=== PATIENT | female | born 1990 | race Caucasian/White ===

== ENCOUNTER 2016-12-07 04:54 | Emergency (ER) | payer BC, MEDICAID ==
[2016-12-07 05:01] VITALS: TEMP 98.2
--- NOTE | 2016-12-07 05:36 | CPEKG ---
Heart Rate: 84 RR Interval: 714 P-R Interval: 164 QRSD Interval: 90 QT Interval: 384 QTC Interval: 454 P [place]: 73 QRS [place]: 76 T Wave [place]: 26 EKG Severity - NORMAL ECG - EKG Impression: SINUS RHYTHM Electronically Signed By: Patsy Ferreira 07-Dec-2016 06:39:24
--- NOTE | 2016-12-07 05:51 | EDPHY ---
H & P Stated Complaint: SOB COUGH CHEST PAIN, NOT TAKING MENTAL HEALTH MEDS Time Seen by Provider: 12/07/16 05:05 HPI/ROS: HPI The patient presents with cough, shortness of breath, chest pain for the last 3 weeks. Her symptoms have been intermittent though she believes the getting progressively worse. Her cough is productive in nature and over the last 2 days it has been somewhat bloody. This is been associated with left-sided chest pain which feels like it is in her chest wall and is sharp in nature. She sometimes feels like she can't catch her breath, however this comes and goes. A few days ago she had a fainting episode while at home. This occurred while standing and was witnessed by her father. She also says for the last 1 week she has been off of her psychiatric medications. Her doctor changed her from Cymbalta to Wellbutrin and she felt it was not helping so she stopped taking all of her medications. She denies any suicidal or homicidal ideations. REVIEW OF SYSTEMS Constitutional: No fever, no chills. Eyes: No discharge. ENT: No sore throat. Cardiovascular: Positive for chest pain, no palpitations. Respiratory: See HPI Gastrointestinal: No abdominal pain, no vomiting. Genitourinary: No hematuria. Musculoskeletal: No back pain. Skin: No rashes. Neurological: No headache. PMHx: Depression on multiple medications Soc Hx: 1/2 pack per day smoker PHYSICAL General Appearance: Alert, no distress Eyes: Pupils equal and round no pallor or injection ENT, Mouth: Mucous membranes moist Respiratory: There are no retractions, lungs are clear to auscultation Cardiovascular: Regular rate and rhythm Gastrointestinal: Abdomen is soft and non-tender, no masses, bowel sounds normal Neurological: A&O, moves all extremities Skin: Warm and dry, no rashes Musculoskeletal: Neck is supple non tender Extremities: symmetrical, full range of motion Psychiatric: Patient is oriented X 3, there is no agitation Source: Patient Exam Limitations: No limitations - Personal History LMP (Females 10-55): 1-7 Days Ago Current Tetanus/Diphtheria Vaccine: Yes Current Tetanus Diphtheria and Acellular Pertussis (TDAP): Yes - Medical/Surgical History Hx Asthma: No Hx Chronic Respiratory Disease: No Hx Diabetes: No Hx Cardiac Disease: No Hx Renal Disease: No Hx Cirrhosis: No Hx Alcoholism: No Hx HIV/AIDS: No Hx Splenectomy or Spleen Trauma: No Other PMH: PANIC , DEPRESSION, PTSD, - Social History Smoking Status: Heavy smoker Constitutional: Initial Vital Signs Temperature (C) 36.8 C 12/07/16 04:58 Heart Rate 102 H 12/07/16 04:58 Respiratory Rate 18 12/07/16 04:58 Blood Pressure 122/92 H 12/07/16 04:58 O2 Sat (%) 100 12/07/16 04:58 O2 Delivery Mode Room Air Allergies/Adverse Reactions: No Known Allergies Allergy (Verified 12/07/16 05:01) Home Medications: Medication Instructions Recorded NK [No Known Home Meds] 12/07/16 Medical Decision Making - Diagnostics EKG Interpretation: EKG: Complete interpretation has been separately recorded in the [facility] archive. Summary impression: Normal sinus rhythm Imaging Results: Chest x-ray two view shows no cardiomegaly, no infiltrate, interpreted by me, radiology interpretation is pending. Differential Diagnosis: This is a 26-year-old female with past psychiatric history, off of her medications for the last 1 week, but now presenting with 3 weeks of cough, chest wall pain some shortness of breath intermittently. On exam, she is well- appearing, she has normal vital signs. She has chest wall tenderness of her left chest without any rash. Differential diagnosis includes pneumonia, bronchitis, costochondritis, less likely pulmonary embolism given no hypoxia, risk factors. EKG and chest x-ray were unremarkable. Patient admitted to her nurse that she did use amphetamines intravenously within the last few days. This could explain some of her symptoms as well. Labs were checked and were unremarkable. She will be discharged from the emergency room. I have advised her to stop using any amphetamines as I feel this could be contributing to her symptoms. I did advise her to also stop smoking. I feel she is likely suffering from costochondritis due to a viral URI type illness. - Data Points Laboratory Results: Laboratory Results 12/07/16 06:20 12/07/16 06:20 12/07/16 12/07/16 12/07/16 06:20 06:20 06:20 WBC RBC Hgb Hct MCV MCH MCHC RDW Plt Count MPV Neut % (Auto) Lymph % (Auto) [place] % (Auto) Eos % (Auto) Baso % (Auto) Nucleat RBC Rel Count Absolute Neuts (auto) Absolute Lymphs (auto) Absolute Monos (auto) Absolute Eos (auto) Absolute Basos (auto) Absolute Nucleated RBC Immature Gran % Immature Gran # D-Dimer 0.44 ug/mLFEU ug/mLFEU (0.00-0.50) Sodium 141 mEq/L mEq/L (134-144) Potassium 3.6 mEq/L mEq/L (3.5-5.2) Chloride 106 mEq/L mEq/L (97-110) Carbon Dioxide 23 mEq/l mEq/l (22-31) Anion Gap 12 mEq/L mEq/L (8-16) BUN 12 mg/dL mg/dL (7-23) Creatinine 0.8 mg/dL mg/dL (0.6-1.0) Estimated GFR > 60 Glucose 88 mg/dL mg/dL (70-100) Calcium 9.8 mg/dL mg/dL (8.5-10.4) Beta HCG, Qual NEGATIVE 12/07/16 06:20 WBC 8.19 10^3/uL 10^3/uL (3.80-9.50) RBC 4.62 10^6/uL 10^6/uL (4.18-5.33) Hgb 13.3 g/dL g/dL (12.6-16.3) Hct 40.0 % % (38.0-47.0) MCV 86.6 fL fL (81.5-99.8) MCH 28.8 pg pg (27.9-34.1) MCHC 33.3 g/dL g/dL (32.4-36.7) RDW 13.7 % % (11.5-15.2) Plt Count 244 10^3/uL 10^3/uL (150-400) MPV 11.8 fL H fL (8.7-11.7) Neut % (Auto) 60.3 % % (39.3-74.2) Lymph % (Auto) 30.0 % % (15.0-45.0) [place] % (Auto) 8.3 % % (4.5-13.0) Eos % (Auto) 0.5 % L % (0.6-7.6) Baso % (Auto) 0.7 % % (0.3-1.7) Nucleat RBC Rel Count 0.0 % % (0.0-0.2) Absolute Neuts (auto) 4.93 10^3/uL 10^3/uL (1.70-6.50) Absolute Lymphs (auto) 2.46 10^3/uL 10^3/uL (1.00-3.00) Absolute Monos (auto) 0.68 10^3/uL 10^3/uL (0.30-0.80) Absolute Eos (auto) 0.04 10^3/uL 10^3/uL (0.03-0.40) Absolute Basos (auto) 0.06 10^3/uL 10^3/uL (0.02-0.10) Absolute Nucleated RBC 0.00 10^3/uL 10^3/uL (0-0.01) Immature Gran % 0.2 % % (0.0-1.1) Immature Gran # 0.02 10^3/uL 10^3/uL (0.00-0.10) D-Dimer Sodium Potassium Chloride Carbon Dioxide Anion Gap BUN Creatinine Estimated GFR Glucose Calcium Beta HCG, Qual Departure - Departure Disposition: Home, Routine, Self-Care Clinical Impression: Cough Chest pain Qualifiers: Chest pain type: other chest pain Qualified Code(s): R07.89 - Other chest pain Condition: Good Instructions: Chest Pain (ED) Additional Instructions: Please stop using any drugs as this could be contributing to her chest pain. You should take ibuprofen or Tylenol as needed. Please return to the emergency room if your worse in any way. Referrals: [facility] [Outside] - As per Instructions [facility] [Outside] - As per Instructions
[2016-12-07 06:28] VITALS: PULSE 76
[2016-12-07 06:29] LABS: % IMMATURE GRANULYOCYTES 0.2 % (0.0-1.1); ABSOLUTE IMMATURE GRANULOCYTES 0.02 10^3/uL (0.00-0.10); ADD DIFF? NO; ADD MORPH? NO; ADD SCAN? NO; ATYPICAL LYMPHOCYTE FLAG 40 (0-99); FRAGMENT RBC FLAG 0 (0-99); HEMOGLOBIN 13.3 g/dL (12.6-16.3); LEFT SHIFT FLG 0 (0-99); LIPEMIA HEMOLYSIS FLAG 80 (0-99); MEAN CELL HEMOGLOBIN 28.8 pg (27.9-34.1); MEAN CELL HEMOGLOBIN CONCENTR. 33.3 g/dL (32.4-36.7); MEAN CELL VOLUME 86.6 fL (81.5-99.8); MEAN PLATELET VOLUME 11.8 fL (8.7-11.7); PLATELET CLUMPS FLAG 0 (0-99); PLATELET COUNT 244 10^3/uL (150-400); RED BLOOD CELL COUNT 4.62 10^6/uL (4.18-5.33); RED CELL DISTRIBUTION WIDTH 13.7 % (11.5-15.2)
[2016-12-07 06:52] LABS: ANION GAP 12 mEq/L (8-16); CALCIUM 9.8 mg/dL (8.5-10.4); CARBON DIOXIDE 23 mEq/l (22-31); CHLORIDE 106 mEq/L (97-110); CREATININE 0.8 mg/dL (0.6-1.0); GLOMERULAR FILTRATION RATE > 60; GLUCOSE 88 mg/dL (70-100); POTASSIUM 3.6 mEq/L (3.5-5.2); SODIUM 141 mEq/L (134-144)
[2016-12-07 07:13] VITALS: BP 119/81; RESP 18; O2SAT 98
== END 2016-12-07 07:16 | disposition home or self-care (01) ==
DX: R05 Cough (principal); R07.89 Other chest pain; F17.200 Nicotine dependence, unspecified, uncomplicated

== ENCOUNTER 2017-02-09 07:37 | Emergency (ER) | payer MEDICAID ==
[2017-02-09] MEDS ORDERED: LORazepam 2 MG/ML INJ IVP ONE (07:51)
[2017-02-09 08:33] LABS: % IMMATURE GRANULYOCYTES 0.6 % (0.0-1.1); ABSOLUTE IMMATURE GRANULOCYTES 0.06 10^3/uL (0.00-0.10); ADD DIFF? NO; ADD MORPH? NO; ADD SCAN? NO; ATYPICAL LYMPHOCYTE FLAG 40 (0-99); FRAGMENT RBC FLAG 0 (0-99); HEMATOCRIT 41.4 % (38.0-47.0); HEMOGLOBIN 14.3 g/dL (12.6-16.3); LEFT SHIFT FLG 0 (0-99); LIPEMIA HEMOLYSIS FLAG 90 (0-99); MEAN CELL HEMOGLOBIN 28.8 pg (27.9-34.1); MEAN CELL HEMOGLOBIN CONCENTR. 34.5 g/dL (32.4-36.7); MEAN CELL VOLUME 83.3 fL (81.5-99.8); MEAN PLATELET VOLUME 12.5 fL (8.7-11.7); PLATELET CLUMPS FLAG 0 (0-99); PLATELET COUNT 275 10^3/uL (150-400); RED BLOOD CELL COUNT 4.97 10^6/uL (4.18-5.33); RED CELL DISTRIBUTION WIDTH 13.2 % (11.5-15.2)
[2017-02-09 08:39] LABS: ANION GAP 18 mEq/L (8-16); CALCIUM 10.5 mg/dL (8.5-10.4); CARBON DIOXIDE 19 mEq/l (22-31); CHLORIDE 108 mEq/L (97-110); GLOMERULAR FILTRATION RATE > 60; GLUCOSE 79 mg/dL (70-100); POTASSIUM 3.5 mEq/L (3.5-5.2); SODIUM 145 mEq/L (134-144)
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
[2017-02-09 09:50] LABS: ETHANOL SERUM < 10 mg/dL (0-10)
[2017-02-09] MEDS ORDERED: OLANZapine 5 MG TAB ONE (13:47)
[2017-02-09] MEDS ORDERED: OLANZapine 5 MG TAB PO ONE (13:54)
[2017-02-09 22:58] VITALS: RESP 16
[2017-02-10] MEDS ORDERED: IBUPROFEN 200 MG TAB PO ONE (08:16)
[2017-02-10 18:38] VITALS: BP 100/60; PULSE 88; TEMP 97.5; O2SAT 96
== END 2017-02-10 19:05 ==
LOC: EDUNIT#
DX: F19.10 Other psychoactive substance abuse, uncomplicated (principal); F17.200 Nicotine dependence, unspecified, uncomplicated
CPT/HCPCS: 80305; 96374; G0480; J2060

== ENCOUNTER 2017-04-21 21:29 | Emergency (ER) | payer MEDICAID ==
--- NOTE | 2017-04-21 21:51 | EDPHY ---
H & P Stated Complaint: Suicide attempt 04/20 HPI/ROS: HPI CHIEF COMPLAINT: Suicidal ideation, medication overdose times 36 hours ago HISTORY OF PRESENT ILLNESS: This patient 26-year-old female she states to me that she has a very long history mental illness. She would not describe her mental illness but does state that she suffers from depression and previous suicidal ideation with suicide attempts. Patient tells me that 36 hours ago around 10:00 a.m. yesterday she ingested cold medicine as well as ibuprofen. She states 16 tabs of cold medicine she is unsure exactly what the medicine is. Additionally she tells me she ingested 15 tabs of ibuprofen. Denies Tylenol ingestion. She does not know the cold medicine was. She states she decided come to the emergency room as she still feels swimmy headed and her vision is blurry. She states she vomited yesterday multiple times. She denies any pain anywhere. She does tell me she suicidal. She came here by bus. Walked to the front door. Past Medical History: Longstanding history of mental illness including depression previous suicidal attempts. Past Surgical History: Denies recent surgery Social History: Lives in [facility] with her parents, unemployed. Smokes tobacco. Denies illicit drugs or alcohol. Family History: Noncontributory ROS REVIEW OF SYSTEMS: A comprehensive 10 point review of systems is otherwise negative aside from elements mentioned in the history of present illness. Exam Constitutional otherwise nontoxic, triage nursing summary reviewed, vital signs reviewed, awake/alert. Eyes normal conjunctivae and sclera, EOMI, 5 mm equal dilated pupils minimally reactive to light, HENT normal inspection, atraumatic, moist mucus membranes, no epistaxis, neck supple/ no meningismus, no raccoon eyes. Respiratory clear to auscultation bilaterally, normal breath sounds, no respiratory distress, no wheezing. Cardiovascular rate normal, regular rhythm, no murmur, no edema, distal pulses normal. Gastrointestinal soft, non-tender, no rebound, no guarding, normal bowel sounds, no distension, no pulsatile mass. Genitourinary no CVA tenderness. Musculoskeletal no midline vertebral tenderness, full range of motion, no calf swelling, no tenderness of extremities, no meningismus, good pulses, neurovascularly intact. Skin pink, warm, & dry, no rash, skin atraumatic. Neurologic awake, alert and oriented x 3, AAOx3, moves all 4 extremities equally, motor intact, sensory intact, CN II-XII intact, normal cerebellar, normal vision, normal speech. Psychiatric normal mood/affect. Heme/Lymph/Immune no lymphadenopathy. Differential Diagnosis: Includes but is not limited to in a particular order drug overdose, Tylenol toxicity, dehydration, electrolyte disturbance, renal failure, suicidal ideation Medical Decision Making: Plan for this patient IV establishment IV fluid bolus 1 L normal saline, check LFTs, check acetaminophen level checked salicylate level. Symptomatic treatment. Patient be placed on M1 hold. Re-evaluation: 0124: Patient seen evaluated by mental health. They would like to place this patient in a CSU. The like to keep her on M1 hold. 0452: Patient has been accepted by Rene ESPARZA , at [place]. EMTALA Filled out. Appropriate transfer to be set up. No acute events overnight. Medically clear. Appropriate for transfer. Suicidal ideation with depression. Source: Patient - Personal History LMP (Females 10-55): 1-7 Days Ago Current Tetanus/Diphtheria Vaccine: Unsure Current Tetanus Diphtheria and Acellular Pertussis (TDAP): Unsure - Medical/Surgical History Hx Asthma: No Hx Chronic Respiratory Disease: No Hx Diabetes: No Hx Cardiac Disease: No Hx Renal Disease: No Hx Cirrhosis: No Hx Alcoholism: No Hx HIV/AIDS: No Hx Splenectomy or Spleen Trauma: No Other PMH: PANIC , DEPRESSION, PTSD, - Social History Smoking Status: Heavy smoker Constitutional: Initial Vital Signs Temperature (C) 36.8 C 04/21/17 21:35 Heart Rate 102 H 04/21/17 21:35 Respiratory Rate 16 04/21/17 21:35 Blood Pressure 122/111 H 04/21/17 21:35 O2 Sat (%) 98 04/21/17 21:35 O2 Delivery Mode Room Air Allergies/Adverse Reactions: No Known Allergies Allergy (Verified 02/09/17 08:04) Home Medications: Medication Instructions Recorded MIRTAZAPINE 04/21/17 Seroquel 04/21/17 Topamax 04/21/17 Medical Decision Making - Data Points Laboratory Results: Laboratory Results 04/21/17 22:19 04/21/17 22:19 04/21/17 04/21/17 04/21/17 22:19 22:19 21:50 WBC 8.38 10^3/uL 10^3/uL (3.80-9.50) RBC 4.20 10^6/uL 10^6/uL (4.18-5.33) Hgb 12.2 g/dL L g/dL (12.6-16.3) Hct 36.0 % L % (38.0-47.0) MCV 85.7 fL fL (81.5-99.8) MCH 29.0 pg pg (27.9-34.1) MCHC 33.9 g/dL g/dL (32.4-36.7) RDW 14.6 % % (11.5-15.2) Plt Count 238 10^3/uL 10^3/uL (150-400) MPV 12.4 fL H fL (8.7-11.7) Neut % (Auto) 51.8 % % (39.3-74.2) Lymph % (Auto) 40.0 % % (15.0-45.0) [place] % (Auto) 6.8 % % (4.5-13.0) Eos % (Auto) 0.5 % L % (0.6-7.6) Baso % (Auto) 0.7 % % (0.3-1.7) Nucleat RBC Rel Count 0.0 % % (0.0-0.2) Absolute Neuts (auto) 4.34 10^3/uL 10^3/uL (1.70-6.50) Absolute Lymphs (auto) 3.35 10^3/uL H 10^3/uL (1.00-3.00) Absolute Monos (auto) 0.57 10^3/uL 10^3/uL (0.30-0.80) Absolute Eos (auto) 0.04 10^3/uL 10^3/uL (0.03-0.40) Absolute Basos (auto) 0.06 10^3/uL 10^3/uL (0.02-0.10) Absolute Nucleated RBC 0.00 10^3/uL 10^3/uL (0-0.01) Immature Gran % 0.2 % % (0.0-1.1) Immature Gran # 0.02 10^3/uL 10^3/uL (0.00-0.10) Sodium 138 mEq/L mEq/L (134-144) Potassium 3.5 mEq/L mEq/L (3.5-5.2) Chloride 106 mEq/L mEq/L (97-110) Carbon Dioxide 21 mEq/l L mEq/l (22-31) Anion Gap 11 mEq/L mEq/L (8-16) BUN 13 mg/dL mg/dL (7-23) Creatinine 0.8 mg/dL mg/dL (0.6-1.0) Estimated GFR > 60 Glucose 84 mg/dL mg/dL (70-100) Calcium 9.3 mg/dL mg/dL (8.5-10.4) Total Bilirubin 0.5 mg/dL mg/dL (0.1-1.4) Conjugated Bilirubin 0.3 mg/dL mg/dL (0.0-0.5) Unconjugated Bilirubin 0.2 mg/dL mg/dL (0.0-1.1) AST 27 IU/L IU/L (14-46) ALT 38 IU/L IU/L (9-52) Alkaline Phosphatase 62 IU/L IU/L (38-126) Total Protein 6.9 g/dL g/dL (6.3-8.2) Albumin 4.1 g/dL g/dL (3.5-5.0) Salicylates < 1.0 mg/dL L mg/dL (2.0-20.0) Urine Opiates Screen NEGATIVE (NEGATIVE) Acetaminophen < 10 mcg/mL L mcg/mL (10-30) Urine Barbiturates NEGATIVE (NEGATIVE) Ur Phencyclidine Scrn NEGATIVE (NEGATIVE) Ur Amphetamine Screen NEGATIVE (NEGATIVE) U Benzodiazepines Scrn NEGATIVE (NEGATIVE) Urine Cocaine Screen NEGATIVE (NEGATIVE) U Marijuana (THC) Screen NON-NEGATIVE H (NEGATIVE) Ethyl Alcohol < 10 mg/dL mg/dL (0-10) Medications Given: Discontinued Medications Sodium Chloride (Ns) 1,000 mls @ 0 mls/hr IV ONCE ONE PRN Reason: Wide Open Stop: 04/21/17 21:58 Last Admin: 04/21/17 22:26 Dose: 1,000 mls Departure - Departure Disposition: Other Psych, Not [place] Clinical Impression: Suicidal ideation Condition: Fair Referrals: NONE *PRIMARY CARE P,. [Primary Care Provider] - As per Instructions
[2017-04-21] MEDS ORDERED: NS 1,000 ML IV ONE (21:57)
[2017-04-21 22:45] LABS: % IMMATURE GRANULYOCYTES 0.2 % (0.0-1.1); ABSOLUTE IMMATURE GRANULOCYTES 0.02 10^3/uL (0.00-0.10); ADD DIFF? NO; ADD MORPH? NO; ADD SCAN? NO; ATYPICAL LYMPHOCYTE FLAG 10 (0-99); FRAGMENT RBC FLAG 0 (0-99); HEMOGLOBIN 12.2 g/dL (12.6-16.3); LEFT SHIFT FLG 0 (0-99); LIPEMIA HEMOLYSIS FLAG 90 (0-99); MEAN CELL HEMOGLOBIN CONCENTR. 33.9 g/dL (32.4-36.7); MEAN CELL VOLUME 85.7 fL (81.5-99.8); MEAN PLATELET VOLUME 12.4 fL (8.7-11.7); PLATELET CLUMPS FLAG 10 (0-99); PLATELET COUNT 238 10^3/uL (150-400); RED CELL DISTRIBUTION WIDTH 14.6 % (11.5-15.2)
[2017-04-21 22:51] LABS: ALANINE AMINOTRANSFERASE 38 IU/L (9-52); ALBUMIN 4.1 g/dL (3.5-5.0); ALKALINE PHOSPHATASE 62 IU/L (38-126); ANION GAP 11 mEq/L (8-16); ASPARTATE AMINOTRANSFERASE 27 IU/L (14-46); BILIRUBIN,TOTAL 0.5 mg/dL (0.1-1.4); BILIRUBIN-CONJUGATED 0.3 mg/dL (0.0-0.5); BILIRUBIN-UNCONJUGATED 0.2 mg/dL (0.0-1.1); CALCIUM 9.3 mg/dL (8.5-10.4); CARBON DIOXIDE 21 mEq/l (22-31); CHLORIDE 106 mEq/L (97-110); CREATININE 0.8 mg/dL (0.6-1.0); ETHANOL SERUM < 10 mg/dL (0-10); GLOMERULAR FILTRATION RATE > 60; GLUCOSE 84 mg/dL (70-100); POTASSIUM 3.5 mEq/L (3.5-5.2); SALICYLATE < 1.0 mg/dL (2.0-20.0); SODIUM 138 mEq/L (134-144); TOTAL PROTEIN 6.9 g/dL (6.3-8.2)
[2017-04-22 05:37] VITALS: BP 113/86; PULSE 85; RESP 16; TEMP 98.1; O2SAT 97
== END 2017-04-22 05:36 ==
LOC: EEVIPCON 21:29
DX: T39.312A Poisoning by propionic acid derivatives, intentional self-harm, initial encounter (principal); F17.200 Nicotine dependence, unspecified, uncomplicated
CPT/HCPCS: 80305; G0480